=== PATIENT | female | born 1955 | race Caucasian/White ===

== ENCOUNTER 2023-12-11 07:57 | Outpatient (AMB) | payer OTHER, SELFPAY ==
--- NOTE | 2023-12-11 08:08 | MHC.OFFVIS ---
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 Guevara is a 68-year-old female who presents with intermittent discomfort in her right knee. She states that her discomfort has gotten more noticeable over the last few months. She does not recall any specific traumatic event preceding the onset of her pain. She does take Tylenol at night to help her sleep. She states that she can not take ibuprofen because it upsets her stomach. She does use Voltaren gel and a foam roller which helped somewhat with her discomfort. She denies any locking or giving way. She notices her discomfort most when going downstairs. Medication List - Last Reconciled 12/11/23 by Sudeep Hearn MD celecoxib (Celebrex) 200 mg PO DAILY PRN Physical Exam Const Other: Well-nourished well-developed very friendly female awake alert and oriented x3 in no acute distress Extrem Other: Bilateral lower extremity examination shows good capillary refill, no skin lesions noted, normal sensation light touch Right knee examination shows a minimal effusion, mild crepitus with range of motion, tenderness along her medial joint line, positive Dawn's test, no instability Results Reviewed Results Reviewed: X-rays of the patient's mild diffuse joint space narrowing, no acute bony abnormalities Assessment & Plan Assessment & Plan (1) Right knee pain: Code(s): M25.561 - Pain in right knee Category: Medical Plan Ms. Guevara is a 68-year-old female who presents with right knee pain due to early degenerative joint disease as well as possible medial meniscus tearing. I had a lengthy discussion with the patient regarding the treatment options. She wishes to hold off on a cortisone injection for now. I did give her a prescription for Celebrex to help with her discomfort. Activity modifications were discussed at length with the patient. She will follow up with me on an as-needed basis should her symptoms not plateau at an unacceptable level. Feel free to call me at any time should questions regarding orthopedic management arise. Thank you very much for asking me to see this very friendly patient. I spent 22 minutes in reviewing the patient's records and imaging studies, seeing the patient and documenting in the medical record. Orders: Orders XR knee RT 3V Today M25.561 - Pain in right knee Medications: New celecoxib (Celebrex) 200 mg PO DAILY PRN 30 caps 3RF pain Coding Level of Care Code New Pt Level 3 (21651) Diagnoses Right knee pain M25.561
== END 2023-12-11 08:33 | disposition home or self-care (01) ==
PROVIDERS: PCP Internal Medicine; Visit Provider Orthopaedic Surgery
DX: M25.561 Pain in right knee (principal)
CPT/HCPCS: 99204

== ENCOUNTER 2023-12-11 08:04 | Outpatient (REF) | payer OTHER, SELFPAY ==
--- NOTE | ~2023-12-11 | XR_ITS ---
EXAMINATION: XR KNEE, RIGHT CLINICAL INFORMATION: Pain. COMPARISON: None available. TECHNIQUE: Three views of the right knee. FINDINGS: Diffuse demineralization. Trace joint effusion. Moderate narrowing of the medial compartment. Small focal concavity along the medial aspect of the medial femoral condyle. Minimal tricompartmental osteophytes. XR/XR knee RT 3V IMPRESSION: [id number] degenerative changes.
== END 2023-12-11 08:05 | disposition home or self-care (01) ==
LOC: HO.HOSX 08:04
PROVIDERS: Visit Provider Orthopaedic Surgery
DX: M25.561 Pain in right knee (principal); M17.11 Unilateral primary osteoarthritis, right knee
CPT/HCPCS: 73562